=== PATIENT | male | born 1990 | race Caucasian/White ===

== ENCOUNTER → 2018-06-09 | Outpatient (CLI) | payer BC ==
[2018-06-09 12:47] LABS: BASO % 0.6 % (0.0-1.0); EOS # 0.1 10^3/uL (0.0-0.50); HEMATOCRIT 44.6 % (42.0-52.0); HEMOGLOBIN 15.1 g/dl (13.5-17.5); IMMATURE GRANULOCYTE % 0.4 % (0-3.0); LYMPH # 1.4 10^3/uL (1.5-6.5); LYMPH % 25.8 % (24.0-44.0); MEAN CORPUSCULAR HEMOGLOBIN 31.4 pg (27.0-33.0); MEAN CORPUSCULAR HGB CONC 33.9 g/dl (32.0-36.5); MEAN CORPUSCULAR VOLUME 92.7 fl (80.0-96.0); MONO # 0.9 10^3/uL (0.0-0.8); MONO % 17.7 % (0.0-5.0); NEUTROPHILS # 2.9 10^3/uL (1.8-7.7); NEUTROPHILS % 54.5 % (36.0-66.0); PLATELET COUNT, AUTOMATED 164 10^3/uL (150-450); RED BLOOD COUNT 4.81 10^6/uL (4.30-6.10); RED CELL DISTRIBUTION WIDTH 13.1 % (11.5-14.5); WHITE BLOOD COUNT 5.2 10^3/uL (4.0-10.0)
[2018-06-09 13:18] LABS: ALBUMIN 3.9 GM/DL (3.2-5.2); ALKALINE PHOSPHATASE 74 U/L (45-117); ALT/SGPT 27 U/L (12-78); ANION GAP 8 MEQ/L (8-16); AST/SGOT 54 U/L (7-37); BILIRUBIN,TOTAL 0.3 MG/DL (0.2-1.0); BLOOD UREA NITROGEN 7 MG/DL (7-18); CALCIUM LEVEL 8.7 MG/DL (8.5-10.1); CARBON DIOXIDE LEVEL 28 MEQ/L (21-32); CHLORIDE LEVEL 108 MEQ/L (98-107); CREATININE FOR GFR 0.72 MG/DL (0.70-1.30); GLOMERULAR FILTRATION RATE > 60.0 (>60); GLUCOSE, FASTING 100 MG/DL (70-100); POTASSIUM SERUM 4.2 MEQ/L (3.5-5.1); SODIUM LEVEL 144 MEQ/L (136-145); TOTAL PROTEIN 6.9 GM/DL (6.4-8.2)
[2018-06-11 00:07] LABS: Lyme Disease IgG/IgM Antibodie <0.91 ISR (0.00-0.90); Lyme Disease IgM Ab Quantitati <0.80 index (0.00-0.79)
== END ==
LOC: M WUC 09:03
DX: R53.83 Other fatigue (principal)
CPT/HCPCS: 80053

== ENCOUNTER 2021-05-07 17:47 | Observation (INO) | payer BC, MEDICAID ==
[~2021-05-07] VITALS: Ht 170.2 cm; Wt 48.0 kg
[~2021-05-07 17:47] MED LIST: BUDE150T OR; DEPA250T2 OR; DEPA250T3 OR; DEPA500T OR; DEPA500T2 OR; RISP0.5T20 OR; seroquel
[2021-05-07] MEDS ORDERED: diphenhydrAMINE 50MG/ML VIAL (J1200) As Ordered ONE (17:51)
[2021-05-07] MEDS ORDERED: HALOPERIDOL 5MG/ML VIAL (J1630 PER 1) As Ordered ONE (17:51)
[2021-05-07] MEDS ORDERED: LORazepam 2 MG/ML VIAL As Ordered ONE (17:52)
[2021-05-07] MEDS ORDERED: LORazepam 2 MG/ML VIAL IM ONE (18:05)
[2021-05-07] MEDS ORDERED: diphenhydrAMINE 50MG/ML VIAL (J1200) IM ONE (18:05)
[2021-05-07] MEDS ORDERED: HALOPERIDOL 5MG/ML VIAL (J1630 PER 1) IM ONE (18:05)
[2021-05-07] MEDS ORDERED: NS 1,000 ML IV ONE ×2 (18:05→20:30)
[2021-05-07] MEDS ORDERED: LORazepam 2 MG/ML VIAL IM STA (18:06)
[2021-05-07 18:15] LABS: VENOUS BASE EXCESS -7.4 (-2.0-2.0); VENOUS HCO3 16.7 MEQ/L (23.0-27.0); VENOUS PARTIAL PRESSURE CO2 30.5 mmHg (38.0-50.0); VENOUS PARTIAL PRESSURE O2 93.9 mmHg (30.0-50.0); VENOUS PH 7.355 UNITS (7.330-7.430); VENOUS STANDARD HCO3 18.6 MEQ/L; VENOUS TOTAL CO2 17.6 MEQ/L (24.0-28.0)
[2021-05-07 18:20] LABS: BASO # 0.1 10^3/uL (0.0-0.2); BASO % 0.6 % (0.0-1.0); EOS % 0.1 % (0.0-3.0); HEMATOCRIT 47.1 % (42.0-52.0); HEMOGLOBIN 15.6 g/dl (13.5-17.5); LYMPH # 1.7 10^3/uL (1.5-5.0); LYMPH % 12.1 % (24.0-44.0); MEAN CORPUSCULAR HEMOGLOBIN 31.1 pg (27.0-33.0); MEAN CORPUSCULAR HGB CONC 33.1 g/dl (32.0-36.5); MONO # 1.9 10^3/uL (0.0-0.8); MONO % 13.1 % (2.0-8.0); NEUTROPHILS # 10.5 10^3/uL (1.5-8.5); NEUTROPHILS % 73.7 % (36.0-66.0); PLATELET COUNT, AUTOMATED 212 10^3/uL (150-450); RED BLOOD COUNT 5.01 10^6/uL (4.30-6.10)
[2021-05-07 18:42] LABS: OSMOLALITY SERUM 300 MOSM/KG (275-295)
[2021-05-07 18:45] LABS: WHITE BLOOD COUNT 14.2 10^3/uL (4.0-10.0)
[2021-05-07 18:54] LABS: AMPHETAMINES LEVEL URINE NEGATIVE (NEGATIVE); BARBITURATES URINE NEGATIVE (NEGATIVE); BENZODIAZEPINES URINE NEGATIVE (NEGATIVE); CANNABINOIDS URINE POSITIVE (NEGATIVE); COCAINE METABOLITE URINE NEGATIVE (NEGATIVE); METHADONE URINE NEGATIVE (NEGATIVE); OPIATES URINE NEGATIVE (NEGATIVE); PHENCYCLIDINE URINE NEGATIVE (NEGATIVE)
[2021-05-07 19:01] LABS: ACETAMINOPHEN LEVEL < 2.0 UG/ML (10.0-30.0); ALBUMIN 4.6 GM/DL (3.2-5.2); ALT/SGPT 40 U/L (12-78); BILIRUBIN,DIRECT 0.2 MG/DL (0.0-0.2); BILIRUBIN,TOTAL 0.7 MG/DL (0.2-1.0); BLOOD UREA NITROGEN 11 MG/DL (7-18); CALCIUM LEVEL 9.2 MG/DL (8.5-10.1); CARBON DIOXIDE LEVEL 16 MEQ/L (21-32); CHLORIDE LEVEL 104 MEQ/L (98-107); CK-MB VALUE MASS 4.9 NG/ML (<3.6); CPK CREATINE PHOSPHOKINASE 1364 U/L (39-308); CREATININE FOR GFR 1.19 MG/DL (0.70-1.30); ETHYL ALCOHOL (ETHANOL) 0.029 % (0.000-0.010); GLOMERULAR FILTRATION RATE > 60.0 (>60); GLUCOSE, FASTING 129 MG/DL (70-100); MB/CK RELATIVE INDEX 0.36 (< OR =4); POTASSIUM SERUM 4.3 MEQ/L (3.5-5.1); SALICYLATE LEVEL 2.4 MG/DL (5.0-30.0); SODIUM LEVEL 139 MEQ/L (136-145); TOTAL PROTEIN 7.6 GM/DL (6.4-8.2); TROPONIN I < 0.02 NG/ML (< 0.10)
[2021-05-08] MEDS ORDERED: LORazepam 2 MG/ML VIAL IV STA (04:47)
[2021-05-08] MEDS ORDERED: ZIPRASIDONE 20MG CAPSULE (GEODON) PO ONE (04:50)
[2021-05-08] MEDS ORDERED: NICOTINE 21MG/24HR 1 EA TRANSDERMAL TD ONE (04:50)
[2021-05-08] MEDS ORDERED: NS 1,000 ML IV ONE (07:15)
[2021-05-08 08:35] LABS: BLOOD UREA NITROGEN 11 MG/DL (7-18); CALCIUM LEVEL 8.5 MG/DL (8.5-10.1); CARBON DIOXIDE LEVEL 24 MEQ/L (21-32); CHLORIDE LEVEL 109 MEQ/L (98-107); CK-MB VALUE MASS 8.3 NG/ML (<3.6); CPK CREATINE PHOSPHOKINASE 1319 U/L (39-308); CREATININE FOR GFR 0.55 MG/DL (0.70-1.30); GLOMERULAR FILTRATION RATE > 60.0 (>60); GLUCOSE, FASTING 67 MG/DL (70-100); MB/CK RELATIVE INDEX 0.63 (< OR =4); POTASSIUM SERUM 4.4 MEQ/L (3.5-5.1); SODIUM LEVEL 140 MEQ/L (136-145); TROPONIN I < 0.02 NG/ML (< 0.10)
[2021-05-08] MEDS: ENOXAPARIN 40MG/0.4ML SYRINGE (J1650 PER 10MG) SC SCH (09:00)
[2021-05-08] MEDS ORDERED: HOME MED LIST COMPLETE! XX SCH (09:05)
[2021-05-08] MEDS ORDERED: ACETAMINOPHEN TAB 650MG DOSE (2X325MG) PO PRN (09:15)
[2021-05-08] MEDS ORDERED: LORazepam 2 MG TAB PO PRN (09:55)
[2021-05-08 10:17] LABS: RSV AMPLIFICATION NEGATIVE (NEGATIVE)
--- NOTE | 2021-05-08 10:52 | HPEPDOC ---
[facility] Medical History & Physical Date of Admission May 08, 2021 Date of Service: May 08, 2021 Attending Physician: VERONICA BETANCOURT MD History and Physical CHIEF COMPLAINT: AMS i/s/o illicit substance, with admission to medicine for rhabdomyolysis HISTORY OF PRESENT ILLNESS: 30 yo M with a history of PSUD, alcohol use unclear if dependence, smoker, with a prior psychiatric illness history and prior admission to [facility] who was brought in by police in altered mentation after ingestion of an unknown illicit substance. He required multiple doses of IV ativan, benadryl and geordon in the ED to sedate him with a sitter currently present and continued to be confused and hyperactive but much improved from the time of presentation. ED evaluation showed WBC of 14.2, Hgb 15.6, platelets 212, Na 140, K 4.4, Cr initial of 1.19 that improved to 0.55 after 3L NC, CK of 1364 that improved to 1319 after the hydration, and lactate of 9 that normalized after hydration. CXR was wnl. He is now being admitted to medicine for observation and hydration i/s/o mild rhabdomyolysis, with ongoing symptom management for his metabolic, likely illicit mediated encephalopathy and empiric CIWA protocol for potential impending alcohol withdrawal. PAST MEDICAL HISTORY: per HPI PAST SURGICAL HISTORY: none SOCIAL HISTORY: Tobacco use: current smoker ETOH: current user, dependence unclear Illicit drug use: confirmed is marijuana, but suspect other substances as well FAMILY HISTORY: unable to corroborate and obtain history from patient at this time. ALLERGIES: Please see below. REVIEW OF SYSTEMS: Denies recent illness, fever, chills, tangential and unable to give a clear history. No noted fever, chills, rigors, complaints of chest pain, palpitations, abdominal pain, nausea, emesis, diarrhea in the ED. HOME MEDICATIONS: Please see below. PHYSICAL EXAMINATION: VITAL SIGNS: see below GENERAL APPEARANCE: NAD, slim built HEENT: NCAT, EOMI, MMM CARDIOVASCULAR: RRR, no m/r/g LUNGS: CTAB ABDOMEN: soft, normoactive sounds, NTND EXTREMITIES: WWP, no edema NEUROLOGICAL: CN3-12 appear intact, moving all extremities PSYCHIATRIC: hyperactive, tangential, oriented to self, remorseful, pressured speech, tangential and confused at times, labile, starts to cry. LABORATORY DATA and IMAGING: discussed above MICROBIOLOGY: Please see below. ASSESSMENT: 30 yo M with PSUD who was brought in by police with aggressive altered mentation with yumiko psychosis suspected 2/2 illicit substance use and also found to have marijuana on tox screen who is being admitted for hydration to medicine with mild rhabdomyolysis Rhabdomyolysis: -s/p 3L NS, will continue at 250cc/hr -daily BMP and CK check -renal function is at baseline Lactic acidosis: resolved with hydration -was likely 2/2/ dehydration -CXR wnl -UA was bland Yumiko psychosis with aggressive behavior i/s/o illicit substance intake -monitor with 1:1 sitter -PRN IV ativan for aggressive behavior -hydration -Per poison control, to avoid Benadryl and haldol -will admit to PCU for closer monitoring -consult psych when medically cleared Alcohol use: without clarity on degree of use and potential dependence -[facility] protocol -Multivitamin, thiamine, folate DVT ppx: lovenox, TEDs, SCDs Vital Signs Vital Signs Date Time Temp Pulse Resp B/P (MAP) Pulse Ox O2 Delivery O2 Flow Rate FiO2 05/08/21 06:15 70 16 99 Room Air 05/08/21 04:15 122/72 (89) 05/07/21 22:45 98.9 Laboratory Data Labs 24H Laboratory Tests 2 05/07/21 18:02: Immature Granulocyte % (Auto) 0.4, Neutrophils (%) (Auto) 73.7H, Lymphocytes (%) (Auto) 12.1L, Monocytes (%) (Auto) 13.1H, Eosinophils (%) (Auto) 0.1, Basophils (%) (Auto) 0.6, Neutrophils # (Auto) 10.5H, Lymphocytes # (Auto) 1.7, Monocytes # (Auto) 1.9H, Eosinophils # (Auto) 0.0, Basophils # (Auto) 0.1, Nucleated Red Blood Cells % (auto) 0.0, Lactic Acid Level 9.7*H, Urine Opiates Screen NEGATIVE, Urine Methadone Screen NEGATIVE, Urine Barbiturates Screen NEGATIVE, Urine Phencyclidine Screen NEGATIVE, Urine Amphetamines Screen NEGATIVE, Urine Benzodiazepines Screen NEGATIVE, Urine Cocaine Metabolite Screen NEGATIVE, Urine Cannabinoids Screen POSITIVEH 05/07/21 18:07: Urine Color YELLOW, Urine Appearance CLEAR, Urine pH 6.0, Urine Specific Ellsworth 1.011, Urine Protein NEGATIVE, Urine Glucose (UA) NEGATIVE, Urine Ketones NEGATIVE, Urine Blood NEGATIVE, Urine Nitrite NEGATIVE, Urine Bilirubin NEGATIVE, Urine Urobilinogen 0.2, Urine Leukocyte Esterase NEGATIVE, Urine WBC (Auto) 1, Urine RBC (Auto) 0, Urine Hyaline Casts (Auto) 2, Urine Bacteria (Auto) NEGATIVE, Urine Squamous Epithelial Cells 0, Urine Sperm (Auto) , Blood Gas Bicarbonate Standard 18.6, Venous Blood pH 7.355, Venous Blood Partial Pressure CO2 30.5L, Venous Blood Partial Pressure O2 93.9H, Venous Blood Total Carbon Dioxide 17.6L, Venous Blood HCO3 16.7L, Venous Blood Oxygen Saturation 97.0H, Venous Blood Base Excess -7.4L, Anion Gap 19H, Glomerular Filtration Rate > 60.0, Osmolality 300H, Calcium Level 9.2, Total Bilirubin 0.7, Direct Bilirubin 0.2, Aspartate Amino Transf (AST/SGOT) 71H, Alanine Aminotransferase (ALT/SGPT) 40, Alkaline Phosphatase 79, Total Creatine Kinase 1364H, Creatine Kinase MB 4.9H, Creatine Kinase MB Relative Index 0.36, Troponin I < 0.02, Total Protein 7.6, Albumin 4.6, Albumin/Globulin Ratio 1.5, Thyroid Stimulating Hormone (TSH) 1.300, Salicylates Level 2.4L, Acetaminophen Level < 2.0L, Ethyl Alcohol Level 0.029H 05/08/21 07:19: Anion Gap 7L, Glomerular Filtration Rate > 60.0, Calcium Level 8.5, Total Creatine Kinase 1319H, Creatine Kinase MB 8.3H, Creatine Kinase MB Relative Index 0.63, Troponin I < 0.02, Lactic Acid Followup at 4 Hours 0.6 05/08/21 09:05: CBC/BMP Laboratory Tests 05/07/21 18:02 05/07/21 18:07 05/08/21 07:19 Home Medications No Active Prescriptions or Reported Meds Allergies Coded Allergies: SEAFOOD (Verified Allergy, Intermediate, Swelling, 05/14/12) SEASONAL ALLERGIES (Verified Allergy, Mild, 05/14/12) No Known Drug Allergies (Verified Allergy, Unknown, 05/07/21) A-FIB/CHADSVASC A-FIB History Current/History of A-Fib/PAF?: No Current PO Anticoag Therapy: No Age/Risk Factor Scoring CHADSVASC: CHADSVASC Response (Comments) Value Age Risk Factor Age < 65 years old 0 Gender Risk Factor Male 0 Hx of CHF No 0 Hx of HTN No 0 Hx of Stroke/TIA/or VTE No 0 Hx of Diabetes No 0 Hx of Vascular Disease No 0 Total 0 Treatment Treatment ordered: NONE Reason Anticoagulant not given: Not indicated/[id number] VERONICA BETANCOURT MD May 08, 2021 09:55
[2021-05-08] MEDS: NS 1,000 ML IV SCH ×4 (13:44→20:58)
[2021-05-08 15:05] VITALS: BP 138/82
[2021-05-08 15:10] VITALS: BP 138/82
[2021-05-08] MEDS: FOLIC ACID 1 MG TAB PO SCH (15:12)
[2021-05-08] MEDS: MULTIVITAMINS/MINERALS THERAP 1 TAB PO SCH (15:12)
[2021-05-08] MEDS: THIAMINE 100 MG TAB PO SCH ×2 (15:12→20:57)
--- NOTE | 2021-05-08 15:18 | ECGEPIP ---
[facility] - ED Test Date: 2021-05-07 Pat Name: POONAM SOARES Department: Room: - Gender: Male Intensive Care Specialist: Richard BLANK : 1990 Requested By: BLAKE Orellana Order Number: [id number] Reading MD: Blake Smith Measurements Intervals Dorothy Rate: 107 P: 77 CT: 158 QRS: 84 QRSD: 88 T: 50 QT: 348 QTc: 464 Interpretive Statements Sinus tachycardia Possible biatrial enlargement Comparison tracing not on file Electronically Signed on 05-08-2021 15:17:47 EDT by Blake Smith
[2021-05-08] MEDS: LORazepam 2 MG/ML VIAL IV PRN (17:40)
[2021-05-08 20:00] VITALS: BP 125/63
[2021-05-08 22:00] VITALS: BP 121/62
[2021-05-09] VITALS (7 sets, daily range): BP systolic 124–129; BP diastolic 63–83
[2021-05-09] MEDS: NS 1,000 ML IV SCH ×2 (01:53→05:40)
[2021-05-09] MEDS: LORazepam 2 MG/ML VIAL IV PRN (05:39)
[2021-05-09 06:16] LABS: HEMATOCRIT 37.9 % (42.0-52.0); HEMOGLOBIN 12.6 g/dl (13.5-17.5); MEAN CORPUSCULAR HEMOGLOBIN 30.7 pg (27.0-33.0); MEAN CORPUSCULAR HGB CONC 33.2 g/dl (32.0-36.5); MEAN CORPUSCULAR VOLUME 92.4 fl (80.0-96.0); PLATELET COUNT, AUTOMATED 139 10^3/uL (150-450)
[2021-05-09 06:32] LABS: BLOOD UREA NITROGEN 6 MG/DL (7-18); CALCIUM LEVEL 7.9 MG/DL (8.5-10.1); CARBON DIOXIDE LEVEL 23 MEQ/L (21-32); CHLORIDE LEVEL 118 MEQ/L (98-107); CREATININE FOR GFR 0.54 MG/DL (0.70-1.30); GLOMERULAR FILTRATION RATE > 60.0 (>60); GLUCOSE, FASTING 95 MG/DL (70-100); POTASSIUM SERUM 3.9 MEQ/L (3.5-5.1); SODIUM LEVEL 146 MEQ/L (136-145)
[2021-05-09] MEDS: MULTIVITAMINS/MINERALS THERAP 1 TAB PO SCH (09:35)
[2021-05-09] MEDS: THIAMINE 100 MG TAB PO SCH (09:35)
[2021-05-09] MEDS: FOLIC ACID 1 MG TAB PO SCH (09:35)
[2021-05-09] MEDS: ENOXAPARIN 40MG/0.4ML SYRINGE (J1650 PER 10MG) SC SCH (09:36)
--- NOTE | 2021-05-09 15:24 | DS.PDOC ---
Discharge Summary General Date of Admission May 08, 2021 at 09:14 Date of Discharge 05/09/2021 Attending Physician: VERONICA BETANCOURT MD Discharge Summary PROCEDURES PERFORMED DURING STAY: None ADMITTING DIAGNOSES: Mild rhabdomyolysis Dehydration Elio psychosis likely 2/2 illicit stimulant use PSUD DISCHARGE DIAGNOSES: Mild rhabdomyolysis Dehydration Elio psychosis likely 2/2 illicit stimulant use PSUD History of mood disorder, with prior admission to [facility] COMPLICATIONS/CHIEF COMPLAINT: Psychosis, Rhabdomyolysis, Substance Abuse. HISTORY OF PRESENT ILLNESS: 30 yo M with a history of PSUD, alcohol use unclear if dependent, smoker, with a prior psychiatric illness history and prior admission to [facility] who was brought in by police in altered mentation after ingestion of an unknown illicit substance. HOSPITAL COURSE: He required multiple doses of IV ativan, benadryl and geordon in the ED to sedate him and continued to be confused and hyperactive but much improved from the time of presentation by the time I initially assessed him. ED evaluation showed WBC of 14.2, Hgb 15.6, platelets 212, Na 140, K 4.4, Cr initial of 1.19 that improved to 0.55 after 3L NC, CK of 1364 that improved to 1319 after the hydration, and lactate of 9 that normalized after hydration. CXR was wnl. He is now being admitted to medicine for observation and hydration i/s/o mild rha bdomyolysis, with ongoing symptom management for his metabolic, likely illicit mediated encephalopathy and empiric CIWA protocol for potential impending alcohol withdrawal. He was evaluated by psychiatry and deemed appropriate for home discharge and is now medically cleared and being discharged home with recommendation to follow up with PCP and establish care with outpatient psychiatry. DISCHARGE MEDICATIONS: Please see below. ALLERGIES: Please see below. PHYSICAL EXAMINATION ON DISCHARGE: VITAL SIGNS: Please see below. GENERAL APPEARANCE: NAD, slim built, multiple tattoos HEENT: NCAT, EOMI, MMM CARDIOVASCULAR: RRR, no m/r/g LUNGS: CTAB ABDOMEN: soft, normoactive sounds, NTND EXTREMITIES: WWP, no edema NEUROLOGICAL: CN3-12 appear intact, moving all extremities PSYCHIATRIC: Alert, awake, oriented, remorseful, labile, starts to cry. LABORATORY DATA: Please see below. IMAGING: None PROGNOSIS: Good, with abstinence from illicit drugs, and adherence to psychiatry recommendations ACTIVITY: As tolerated DIET: Regular DISCHARGE PLAN: home with close PCP and referral to [facility] outpatient psychiatry DISPOSITION: home DISCHARGE INSTRUCTIONS: Being discharged home ITEMS TO FOLLOWUP ON ON OUTPATIENT: PSUD DISCHARGE CONDITION: Stable TIME SPENT ON DISCHARGE: 40 minutes. Vital Signs/I&Os Vital Signs Date Time Temp Pulse Resp B/P (MAP) Pulse Ox O2 Delivery O2 Flow Rate FiO2 05/09/21 06:00 82 124/76 05/09/21 04:00 97.3 16 99 Room Air I&O- Last 24 Hours up to 6 AM 05/09/21 06:00 Intake Total 2760 ml Output Total 200 ml Balance 2560 ml Laboratory Data Labs 24H Laboratory Tests 2 05/08/21 09:05: Coronavirus (COVID-19)(PCR) NEGATIVE, Influenza Type A (RT-PCR) NEGATIVE, Influenza Type B (RT-PCR) NEGATIVE, Respiratory Syncytial Virus (PCR) NEGATIVE 05/09/21 05:41: Nucleated Red Blood Cells % (auto) 0.0, Anion Gap 5L, Glomerular Filtration Rate > 60.0, Calcium Level 7.9L, Total Creatine Kinase 1245H CBC/BMP Laboratory Tests 05/09/21 05:41 Discharge Medications No Active Prescriptions or Reported Meds Allergies Coded Allergies: SEAFOOD (Verified Allergy, Intermediate, Swelling, 05/14/12) SEASONAL ALLERGIES (Verified Allergy, Mild, 05/14/12) No Known Drug Allergies (Verified Allergy, Unknown, 05/07/21) VERONICA BETANCOURT MD May 09, 2021 08:45
[2021-05-09] MEDS ORDERED: NICOTINE 21MG/24HR 1 EA TRANSDERMAL TD ONE (16:40)
[2021-05-09] MEDS ORDERED: NICO21DI37 TOP (17:15)
--- NOTE | 2021-05-09 19:12 | MHCR ---
[facility] DATE: 05/09/2021 HISTORY OF PRESENT ILLNESS: I was asked to see this 30-year-old man with history of alcohol and drug use with prior psychiatric admission to the inpatient mental health unit with possible diagnosis of bipolar disorder. He was admitted when he was brought by the police with altered mental status and he was reported to be agitated and aggressive. He was admitted for dehydration and rhabdomyolysis. The patient, as I said, was admitted to the psychiatric unit. The last time that he was admitted was actually on 05/14/2012 and he did present pretty agitated, angry with his parents at the time, threatening his life. He was using opioids and cocaine at the time and some other drugs like ecstasy and methamphetamine. He was treated with Depakote 250 mg twice a day and he was diagnosed with bipolar disorder and a history of polysubstance abuse. He was actually discharged, aside from Depakote 500 mg twice a day and Seroquel 50 mg at bedtime. The patient today states that he is doing okay. He really minimizes whatever substances he has been using. He says that he did have a "relapse" and she says that he has been drinking and "using a little bit of weed." When I asked him if it was just some weed and some alcohol would he have been so agitated, aggressive and confused, he says that is because he had not been sleeping for two days before that. He states that he has been having trouble with his ex-, who keeps trying to prevent him from being able to see his 3-year-old son. But, he feels that he knows what he has to do and he recognizes he has to stop using any drugs or alcohol and he needs to use the support systems where he includes his father in that. He has not taken any medications for a while now and he really feels when he took medication before, it made him too drowsy. He did not like doing psychiatric treatment. He said he had conflict with the therapist that he saw, but he says that he is thinking of going to see Genny Waters, a primary care provider, whom he says has prescribed him some medications in the past. The patient says that the diagnosis of bipolar disorder was never really confirmed before and I am not really eliciting any history of manic or hypomanic-like symptoms, but he does have a history of having anxiety and depression. PAST PSYCHIATRIC HISTORY: As I said, he has had two psychiatric admissions, one in 2010 and one in 2012, both at [facility] inpatient medical health unit and the patient denies any suicidal attempts. FAMILY HISTORY: He denies any psychiatric illness in the family or suicides in the family. MEDICAL HISTORY: He denies any medical problems. MENTAL STATUS EXAMINATION: This patient is alert and oriented times three, pleasant and cooperative. He did have some mildly pressured speech. He did appear to be somewhat anxious and I suspect that that was the underlying problem. There was no formal thought disorder. He said that his mood is okay. His affect appears to be appropriate to his mood. He is not psychotic. He denied any suicidal or homicidal ideations. Concentration is fair. Memory is grossly intact. Insight and judgment are good, though I do think he is minimizing how much substance he is using. DIAGNOSES: 1. Unspecified depressive disorder. 2. Alcohol use disorder. 3. Cannabis use disorder. TREATMENT RECOMMENDATIONS: At this point, I feel that the patient can be discharged home from a psychiatric point of view. He never made any suicidal statements and he is not confused at this point. He is not suicidal or homicidal. He wants to go home. He is particularly concerned that he has no insurance. I highly recommended that he look at going to [facility] outpatient clinic for treatment or any other psychiatric clinic, since he was given a diagnosis of bipolar disorder in the past, but the patient says that he will consider that, but being that he has no insurance, he first wants to go and see his primary care provider, Genny Waters, to see if she will prescribe some medicine for him. The patient gave me permission to speak with his dad by the name of Leonel, phone number . The dad said that he had just gone to see him at the hospital this morning. He felt that the patient was doing okay, but he did say that he is concerned that he is going to continue with the same behavior, mainly the substance use and I did discuss with dad, however, that there really is no reason to transfer him to the psychiatric hospital and he is not committable and I did recommend that he pursue outpatient psychiatric treatment.
== END 2021-05-09 17:37 | disposition home or self-care (01) ==
LOC: M ED 17:47 → M ED INP 17:48 → UNDOADMOB 05-08 09:14 → M ED INP 05-08 09:14 → ENRESERV 05-08 14:18 → M ED INP 05-08 14:58 → M PCU 05-08 14:58 → UNDODISOB 05-09 17:37
PROVIDERS: ADMIT Internal Medicine; ATTEND Internal Medicine
DX: M62.82 Rhabdomyolysis (principal); E86.0 Dehydration; F15.959 Other stimulant use, unspecified with stimulant-induced psychotic disorder, unspecified; F19.10 Other psychoactive substance abuse, uncomplicated; F39 Unspecified mood [affective] disorder; F17.218 Nicotine dependence, cigarettes, with other nicotine-induced disorders; F10.10 Alcohol abuse, uncomplicated; E87.2 Acidosis; Z91.013 Allergy to seafood
CPT/HCPCS: 36415; 80048; 80076; 80143; 80307; 81001; 82077; 82550; 82553; 82803; 83605; 83930; 84443; 85025; 85027; 87631; 93005; 93041; 96361; 96372; 96374; 96376; 99285; J1200; J1630; J1650; J2060

== ENCOUNTER 2021-05-12 05:36 | Inpatient (IN) | payer BC ==
[~2021-05-12] VITALS: Ht 167.6 cm; Wt 44.2 kg
[~2021-05-12 05:36] MED LIST changes: +NICO21DI37 TOP
[2021-05-12] MEDS ORDERED: OLANZapine ORAL DISINTEGRATING TAB 5MG PO ONE (06:10)
[2021-05-12] MEDS ORDERED: LORazepam 2 MG TAB PO ONE (06:10)
[2021-05-12 06:44] LABS: HEMATOCRIT 45.7 % (42.0-52.0); HEMOGLOBIN 15.4 g/dl (13.5-17.5); MEAN CORPUSCULAR HEMOGLOBIN 31.1 pg (27.0-33.0); MEAN CORPUSCULAR HGB CONC 33.7 g/dl (32.0-36.5); MEAN CORPUSCULAR VOLUME 92.3 fl (80.0-96.0); PLATELET COUNT, AUTOMATED 206 10^3/uL (150-450); RED BLOOD COUNT 4.95 10^6/uL (4.30-6.10); WHITE BLOOD COUNT 9.7 10^3/uL (4.0-10.0)
[2021-05-12 07:10] LABS: ACETAMINOPHEN LEVEL < 2.0 UG/ML (10.0-30.0); ALBUMIN 4.1 GM/DL (3.2-5.2); ALT/SGPT 43 U/L (12-78); BILIRUBIN,DIRECT 0.1 MG/DL (0.0-0.2); BILIRUBIN,TOTAL 0.3 MG/DL (0.2-1.0); BLOOD UREA NITROGEN 13 MG/DL (7-18); CALCIUM LEVEL 9.1 MG/DL (8.5-10.1); CARBON DIOXIDE LEVEL 29 MEQ/L (21-32); CHLORIDE LEVEL 107 MEQ/L (98-107); CPK CREATINE PHOSPHOKINASE 550 U/L (39-308); CREATININE FOR GFR 0.81 MG/DL (0.70-1.30); ETHYL ALCOHOL (ETHANOL) < 0.003 % (0.000-0.010); GLOMERULAR FILTRATION RATE > 60.0 (>60); GLUCOSE, FASTING 89 MG/DL (70-100); POTASSIUM SERUM 4.8 MEQ/L (3.5-5.1); SALICYLATE LEVEL 2.3 MG/DL (5.0-30.0); SODIUM LEVEL 141 MEQ/L (136-145); TOTAL PROTEIN 7.6 GM/DL (6.4-8.2)
[2021-05-12 07:10] LABS: AMPHETAMINES LEVEL URINE NEGATIVE (NEGATIVE); BARBITURATES URINE NEGATIVE (NEGATIVE); BENZODIAZEPINES URINE POSITIVE (NEGATIVE); CANNABINOIDS URINE POSITIVE (NEGATIVE); COCAINE METABOLITE URINE NEGATIVE (NEGATIVE); METHADONE URINE NEGATIVE (NEGATIVE); OPIATES URINE NEGATIVE (NEGATIVE); PHENCYCLIDINE URINE NEGATIVE (NEGATIVE)
[2021-05-12] MEDS: NICOTINE 21MG/24HR 1 EA TRANSDERMAL TD SCH (09:00)
[2021-05-12] MEDS ORDERED: NICOTINE 21MG/24HR 1 EA TRANSDERMAL TD ONE (10:35)
[2021-05-12] MEDS ORDERED: NICO1DIS12 TD (11:37)
[2021-05-12 12:45] LABS: RSV AMPLIFICATION NEGATIVE (NEGATIVE)
[2021-05-12] MEDS ORDERED: MAALOX 30 ML SUSP *UDC PO PRN (12:50)
[2021-05-12] MEDS ORDERED: traZODone 50 MG TAB PO PRN (12:50)
[2021-05-12] MEDS: LORazepam 1 MG TAB PO PRN ×2 (16:15→22:02)
[2021-05-12 17:05] VITALS: BP 134/70
[2021-05-12] MEDS: ACETAMINOPHEN TAB 650MG DOSE (2X325MG) PO PRN (20:21)
[2021-05-13] MEDS: LORazepam 1 MG TAB PO PRN ×3 (06:53→19:19)
[2021-05-13] MEDS: ACETAMINOPHEN TAB 650MG DOSE (2X325MG) PO PRN ×2 (08:08→19:20)
[2021-05-13] MEDS: NICOTINE 21MG/24HR 1 EA TRANSDERMAL TD SCH (08:08)
--- NOTE | 2021-05-13 13:39 | HPEPDOC ---
[facility] Medical History & Physical Date of Admission May 12, 2021 Date of Service: May 13, 2021 Attending Physician: VERONICA BETANCOURT MD History and Physical CHIEF COMPLAINT: Suicidal ideation, pressured speech with disorganized thought HISTORY OF PRESENT ILLNESS: 30 yo M with a history of PSUD, alcohol use without evidence of dependence on recent admission, smoker, with unclear but certainly very active psychiatric illness history and prior admission to [facility] and recently admitted to medicine for mild rhabdomyolysis i/s/o recent illicit stimulant consumptions with hyperactive encephalopathy, who was brought in by police after he called them and expressed SI and was found in altered mentation. ED evaluation showed a CBC and BMP within normal limits, CK of 550 and tox screen that was positive for benzos and cannabinoids. On evaluation, he was noted to speak to self, was preoccupied, reported suicidality most recently with thoughts of crashing his car intentionally. Of note, psychiatry was consulted by medicine during his recent medical admission and was deemed safe for discharge home with plan for establishing mental health in the outpatient setting. He is now admitted to the [facility] for psychiatric evaluation and treatment and medicine is consulted for medical evaluation. He denies recent fever, chills, chest pain, palpitations, SOB or any physical pain at this time. He is otherwise angry and irritable, with pressured speech and asking for ativan as he is not being adequately treated and noone is allow ing him to do anything, and is upset the psychiatrist will only see him this afternoon and not right now etc. PAST MEDICAL HISTORY: per HPI PAST SURGICAL HISTORY: none SOCIAL HISTORY: Tobacco use: current smoker ETOH: current user, without dependence Illicit drug use: PSUD, has used various illicit drugs FAMILY HISTORY: unable to corroborate and obtain history from patient at this time. ALLERGIES: Please see below. REVIEW OF SYSTEMS: Tangential and unable to give a coherent singer back tender history. When asked to answer to specific questions, he denies noted fever, chest pain, palpitations, abdominal pain, nausea, emesis, diarrhea. HOME MEDICATIONS: Please see below. PHYSICAL EXAMINATION: VITAL SIGNS: see below GENERAL APPEARANCE: NAD, slim built HEENT: NCAT, EOMI, MMM CARDIOVASCULAR: RRR, no m/r/g LUNGS: CTAB ABDOMEN: soft, normoactive sounds, NTND EXTREMITIES: WWP, no edema NEUROLOGICAL: CN3-12 appear intact, moving all extremities PSYCHIATRIC: hyperactive, tangential, pressured speech, irritable, labile mood LABORATORY DATA and IMAGING: discussed above MICROBIOLOGY: Please see below. ASSESSMENT: 30 yo M with PSUD who was brought in by police reporting suicidal ideation with altered mentation with hyperactivity, distractibility, lability and pressured speech and admitted to the [facility], with medicine now consulted for medical evaluation that was grossly benign at this time. Altered mentation with hyperactivity, distractibility, lability, pressured speech and suicidality: -Plan per primary psych team Nicotine addiction: -21mg nicotine patch/24h DVT ppx: ambulatory. Low risk. He is otherwise medically stable and internal medicine will sign off at this time. Vital Signs Vital Signs Date Time Temp Pulse Resp B/P (MAP) Pulse Ox O2 Delivery O2 Flow Rate FiO2 05/12/21 17:05 97.5 101 18 134/70 (91) 99 05/12/21 12:24 Room Air Laboratory Data Labs 24H Laboratory Tests 2 05/12/21 11:47: Coronavirus (COVID-19)(PCR) NEGATIVE, Influenza Type A (RT-PCR) NEGATIVE, Influenza Type B (RT-PCR) NEGATIVE, Respiratory Syncytial Virus (PCR) NEGATIVE Home Medications Scheduled Nicotine (Nicotine Patch) 21 Mg Patch.td24, 1 PATCH TD DAILY Allergies Coded Allergies: SEAFOOD (Verified Allergy, Intermediate, Swelling, 05/14/12) SEASONAL ALLERGIES (Verified Allergy, Mild, 05/14/12) A-FIB/CHADSVASC A-FIB History Current/History of A-Fib/PAF?: No Current PO Anticoag Therapy: No Age/Risk Factor Scoring CHADSVASC: CHADSVASC Response (Comments) Value Age Risk Factor Age < 65 years old 0 Gender Risk Factor Male 0 Hx of CHF No 0 Hx of HTN No 0 Hx of Stroke/TIA/or VTE No 0 Hx of Diabetes No 0 Hx of Vascular Disease No 0 Total 0 Treatment Treatment ordered: NONE Reason Anticoagulant not given: Not indicated/[id number] VERONICA BETANCOURT MD May 13, 2021 10:18
[2021-05-13] MEDS: OLANZapine ORAL DISINTEGRATING TAB 5MG PO PRN (15:38)
[2021-05-13 16:21] VITALS: BP 122/74
[2021-05-13] MEDS ORDERED: QUEtiapine FUMARATE 50MG TAB PO SCH (21:00)
--- NOTE | 2021-05-13 21:13 | MHHPE ---
[facility] HISTORY AND PHYSICAL DATE OF ADMISSION: 05/12/2021 This is a video assessment. He is in the inpatient psychiatry unit. I am at home. He is seen in the presence of staff. CHIEF COMPLAINT: He feels angry. SUBJECTIVE: He is 31 years old, was admitted to the hospital after having been discharged from the medical/surgical floor a few days ago, had been admitted there with rhabdomyolysis, some question of psychosis, was seen by psychiatry, Dr. Guajardo, on consultation. Please refer to her summary of May 09, 2021 for details related to the recent few days when he had been admitted because of altered mental status, was agitated, aggressive, was found to be dehydrated and with rhabdomyolysis. Has a history of previous inpatient psychiatric hospitalizations on a couple of occasions, the last one was almost nine years ago. Also has a history of misusing various drugs including opioids, cocaine, ecstasy and methamphetamines. When seen by Dr. Guajardo four days ago, was not thought to require inpatient hospitalization and was advised to seek outpatient care. He suggests he was in the process of following up, but it is not very clear. Says police brought him in, does not agree to him having been brought in and also apparently he was given Ativan in hospital to help with anxieties, when he suggests that he uses drugs. He is concerned that his creativity may be tempered if he is on medicines. Says had a hard time with sleep and that he needs Seroquel, Lamictal and Wellbutrin. Says would want those and he had used Seroquel in the past, but unclear when. Later suggests had taken part of some pills that a friend had given him of Seroquel and found it to be useful. Says had used Wellbutrin in the past as well, but this had been several years, and he is somewhat vague on that. Says has heard that he may find Lamictal useful, but that he has never used it. Says wishes to go home and get back to creativity, does various things, and also his business. 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 It should be noted it is difficult following him at times, given his tangential and rapid speech. He says has a couple of friends who are supportive and is vague on whether he gets along with his father, who is in the area apparently. Has not been on many medicines for quite a while, unclear how long, but the indication is months, possibly years. Denies feeling suicidal, though per the emergency room (ER) report, had suggested that he was suicidal when he was brought in by the police. When in the ER, was noted to be talking to himself. Speech was quite unorganized. He was incoherent. Speech was pressured as well. The ER report also suggests the patient had gone through a divorce recently. He had recently tried killing himself by crashing his car and apparently, the police saved his life because they pulled him over. This is per the patient. Says he feels he has been manic for a little while and that he had called the facilities recently asking for appointments, including after discharge from here recently. PAST PSYCHIATRIC HISTORY: Has been hospitalized on at least a couple of occasions. The last one was in 2011 in April. He was diagnosed with bipolar disorder in the past, which seems to be exacerbated when he is using drugs, though he has had difficulties with moods independent of the drugs as well apparently, per the chart. MEDICAL HISTORY: No acute medical conditions, though was hospitalized recently, as stated previously, with dehydration and rhabdomyolysis, was seen by the hospitalist and they have seen him on admission here as well. SUBSTANCE ABUSE HISTORY: Please refer to previous summaries. Has a history of misuse of various drugs and toxicology was positive for benzodiazepines and cannabinoids. SOCIAL HISTORY: Details unclear, we need to refer to previous summaries. Says stays on his own. Has a close friend as well and says intends attending Narcotics Anonymous (NA) via online at the behest of his friends. Reports no close supports. MENTAL STATUS EXAMINATION: Fairly neat, cooperative but irritable, angry, with rapid speech, tangential in thought, directable with effort, but then tends to go off on a tangent in his speech again with some lability of affect including mood, tearful at times. Denies any suicidal thoughts or intents. No homicidal ideas or intents. Does not appear internally preoccupied. No overt delusions elicited at present, unclear if any underlying. No fluctuation of consciousness. He is alert, oriented to time, place and person. Intellect average, possibly above average. Judgment and insight are quite compromised. VITAL SIGNS: Blood pressure 122/74, pulse 98, temperature 98.3. LABORATORY DATA: Urine toxicology positive for benzodiazepines and cannabinoids. Chemistry shows creatinine kinase at 550 (39-308). Creatinine kinase five days ago was 1319, a lot higher. Complete blood count is within normal limits. ASSESSMENT: 1. Bipolar disorder, current episode manic, possibly with psychotic features. 2. Cannabis use disorder. 3. Possibly benzodiazepine use disorder. 4. Consider amphetamine use disorder, including synthetic drugs. It is possible the patient has substance induced kisha, though history does point towards mood fluctuations in the absence of drug use as well, but this may need to be clarified. Drug use may exacerbate or initiate manic episodes as well. PLAN: He is admitted to the inpatient psychiatry unit, placed on relevant precautions and we will look at obtaining collateral information. Meanwhile, we will start him on Seroquel 50 mg at night. Will discontinue the trazodone. He does not wish to take the trazodone. We will also put him on Zyprexa Zydis 5 mg every 4 hours as needed for agitation to help diminish the mood instability as well. We will keep him on Ativan, but with caution for now temporarily, to help with diminishing the mood fluctuation and diminishing the irritability as well. We will involve him in individual, milieu and group therapy. We will also look at obtaining collateral information. He has been seen by the hospitalist. He will be discharged with followup once he is stable. I would anticipate a 5-7 day stay and would suggest substance abuse treatment upon discharge in addition to seeing psychiatry. Further recommendations will be made depending on the clinical picture. The assessment took 35 minutes.
[2021-05-14] MEDS: OLANZapine ORAL DISINTEGRATING TAB 5MG PO PRN ×3 (00:05→15:41)
[2021-05-14] MEDS: LORazepam 1 MG TAB PO PRN ×2 (02:27→08:39)
[2021-05-14] MEDS: NICOTINE 21MG/24HR 1 EA TRANSDERMAL TD SCH (08:39)
[2021-05-14] MEDS: ACETAMINOPHEN TAB 650MG DOSE (2X325MG) PO PRN (08:41)
[2021-05-14] MEDS: LORazepam 0.5 MG TAB PO PRN ×2 (14:31→20:41)
[2021-05-14 16:23] VITALS: BP 132/79
[2021-05-14] MEDS ORDERED: QUEtiapine FUMARATE 25 MG TAB PO SCH (21:00)
[2021-05-15] MEDS: OLANZapine ORAL DISINTEGRATING TAB 5MG PO PRN ×3 (00:47→15:05)
[2021-05-15] MEDS ORDERED: haloperidoL 5 MG TAB PO ONE (01:20)
[2021-05-15] MEDS: LORazepam 0.5 MG TAB PO PRN (07:10)
[2021-05-15] MEDS: ACETAMINOPHEN TAB 650MG DOSE (2X325MG) PO PRN ×3 (07:12→21:15)
[2021-05-15] MEDS: LITHIUM CARBONATE 300 MG **CR** TAB PO SCH ×2 (08:44→20:31)
[2021-05-15] MEDS: QUEtiapine FUMARATE 50MG TAB PO SCH (08:44)
[2021-05-15] MEDS: NICOTINE 21MG/24HR 1 EA TRANSDERMAL TD SCH (08:45)
[2021-05-15] MEDS ORDERED: LORazepam 0.5 MG TAB PO ONE (10:00)
--- NOTE | 2021-05-15 10:13 | MHIPN ---
[facility] PROGRESS NOTE DATE: 05/14/2021 VITAL SIGNS: Blood pressure 122/74, pulse 98, temperature 98.3. It should be noted this is a video assessment, I am at home, he is at the inpatient psychiatry unit, he is seen in the presence of staff. CHIEF COMPLAINT: Feels better. SUBJECTIVE: Seen for followup. Indicates feels better, more rested, though noticed that his sleep was still broken, but was able to get back to sleep. Has felt less anxious, taking the medicines as needed, including Zydis Zyprexa, which he took earlier, and lorazepam. Says gets less angry overall. MENTAL STATUS EXAMINATION: He is neat, he is cooperative, no agitation at present, speech less rapid, he is coherent, less tangential, with a calmer affect. Denies any thoughts of harming himself or anyone else, currently no overt delusions, though these may be "under the surface." Judgment and insight remain compromised, though possibly somewhat improved. ASSESSMENT: Bipolar disorder, current episode manic, possibly with psychotic features. Cannabis use disorder. Possible benzodiazepine and amphetamine use disorder. Feels a bit more stable in terms of mood, and he slept better than he had recently. PLAN: The Seroquel is increased to 75 mg at night, it is quite possible this may need further increase in time. I would suggest that he continue with the Zydis Zyprexa 5 mg every 4 hours as needed for agitation, but the Ativan will be decreased to 0.5 mg every few hours, for the next 48 hours, as needed, as there can be concerns regarding combining the Zyprexa (olanzapine) and Ativan (lorazepam), though there is greater concerns using them intramuscular. Will encourage his participation in activities in the unit. We will look at obtaining collateral information. He will be seeing the assigned clinicians tomorrow, and further recommendations will be made. He requests his boots and watch, and we will proceed with that with unit policy.
--- NOTE | 2021-05-15 10:17 | MHIPNPDOC ---
[facility] Progress Note Progress Note DATE OF SERVICE: 05/15/21 Patient was admitted due to acutely manic-like episode. Patient is cooperating with the medicine but reported that he slept only 3 hours last night and is stil l feeling very agitated, thinking fast, and having her time slowing down. He states that whenever he is under stress he gets manic and feels great and sometimes feels like he is Hari Gene. He is denying any command hallucination. Denies any paranoid and is asking for some medicine to slow his mind about and is willing to cooperate. Speech is very pressured and fast and flighty but is relevant and fairly coherent. Denies any lethality issues. HISTORY: . VITAL SIGNS: See below. NEW TEST RESULTS: . CURRENT MEDICATIONS: See below. MENTAL STATUS EXAMINATION: Patient is a 30-year old male, who is pressured and agitated. Speech: Is very fast, overproductive and flighty. Language skills are Fair. Thought processes including: , Easily distractible and flighty. Thought content: , Marked grandiosity. Abstract reasoning, and computation: poor]. Description of associations: , Disorganized. Description of abnormal or psychotic thoughts: Psychomotor agitation and grandiose ideas. Judgment: poor. Insight: poor. Orientation: , Well oriented. Recent and remote memory: Fair. Attention span and concentration: poor. Language: . Fund of knowledge: . Mood: , Elevated very happy. Affect: Grossly manic. DIAGNOSES: 1. . Bipolar disorder type I, manic 2. . 3. . ASSESSMENT:[Remained very pressured, agitated with gross manic symptoms] MANAGEMENT PLAN: [Stabilized with the medications. Increase the Seroquel. Inc rease Ativan and start lithium]. TIME SPENT: [[place] minutes. Vital Signs Vital Signs Date Time Temp Pulse Resp B/P (MAP) Pulse Ox O2 Delivery O2 Flow Rate FiO2 05/14/21 16:23 98.4 99 18 132/79 (96) 98 Room Air Current Medications Current Medications Medications (Trade) Dose Ordered Sig/Debbie Route PRN Reason Start Time Stop Time Status Last Admin Dose Admin Acetaminophen (Tylenol Tab) 650 mg Q6HP PRN PO HEADACHE or MILD DISCOMFORT 05/12/21 12:50 05/15/21 07:12 Al Hydrox/Mg Hydrox/Simethicone (Mylanta) 30 ml Q4HP PRN PO HEARTBURN/INDIGESTION 05/12/21 12:50 Home Med (Med Rec Complete!) ASDIRECTED XX 05/12/21 11:40 05/12/21 11:41 DC [place] Carbonate (Lithobid Cr) 300 mg BID PO 05/15/21 09:00 05/15/21 08:44 Lorazepam (Ativan) 0.5 mg Q6HP PRN PO ANXIETY 05/14/21 12:15 05/15/21 08:23 DC 05/15/21 07:10 Lorazepam (Ativan) 1 mg Q6HP PRN PO ANXIETY/AGITATION 05/12/21 12:50 05/14/21 12:16 DC 05/14/21 08:39 Lorazepam (Ativan) 1 mg TID PO 05/15/21 16:00 Magnesium Hydroxide (Milk Of Magnesia) 30 ml DAILYPRN PRN PO CONSTIPATION 05/12/21 12:50 Nicotine (Nicoderm Cq 21mg) 1 patch DAILY TD 05/12/21 09:00 05/15/21 08:45 Olanzapine (ZyPREXA ZYDIS) 5 mg Q4HP PRN PO AGITATION 05/13/21 15:05 05/15/21 00:47 Quetiapine Fumarate (SEROquel) 50 mg QAM PO 05/15/21 09:00 05/15/21 08:44 Quetiapine Fumarate (SEROquel) 50 mg QHS PO 05/13/21 21:00 05/14/21 12:16 DC 05/13/21 21:29 Quetiapine Fumarate (SEROquel) 75 mg QHS PO 05/14/21 21:00 05/15/21 08:23 DC 05/14/21 20:41 Quetiapine Fumarate (SEROquel) 200 mg QHS PO 05/15/21 21:00 Trazodone HCl (Desyrel) 50 mg QHSP PRN PO INSOMNIA 05/12/21 12:50 05/13/21 15:08 DC 05/12/21 20:20 Allergies Coded Allergies: SEAFOOD (Verified Allergy, Intermediate, Swelling, 05/14/12) SEASONAL ALLERGIES (Verified Allergy, Mild, 05/14/12) XANDER GODDARD M.D. May 15, 2021 10:17
[2021-05-15] MEDS: LORazepam 1 MG TAB PO SCH ×2 (15:05→20:31)
[2021-05-15 17:20] VITALS: BP 140/79
[2021-05-15] MEDS: QUEtiapine FUMARATE 200 MG TAB PO SCH (20:31)
[2021-05-16 07:20] VITALS: BP 139/85
[2021-05-16] MEDS: OLANZapine ORAL DISINTEGRATING TAB 5MG PO PRN ×3 (07:28→16:32)
[2021-05-16] MEDS: LORazepam 1 MG TAB PO SCH ×3 (08:02→20:09)
[2021-05-16] MEDS: NICOTINE 21MG/24HR 1 EA TRANSDERMAL TD SCH (08:02)
[2021-05-16] MEDS: MOM 30ML SUSPENSION UDC PO PRN (08:02)
[2021-05-16] MEDS: LITHIUM CARBONATE 300 MG **CR** TAB PO SCH ×2 (08:02→20:09)
[2021-05-16] MEDS: QUEtiapine FUMARATE 50MG TAB PO SCH (08:02)
[2021-05-16] MEDS: ACETAMINOPHEN TAB 650MG DOSE (2X325MG) PO PRN (10:24)
--- NOTE | 2021-05-16 12:14 | MHIPNPDOC ---
[facility] Progress Note Progress Note DATE OF SERVICE: 05/16/21 The patient cooperated with medications and reports feeling much better today. He slept well last night and feels he can concentrate and focus and feels more c reativity. He is much less intense and not as pressured and better organized. He is tolerating both medicines without any side effect and is happy with the progress and is willing to cooperate. HISTORY: . VITAL SIGNS: See below. NEW TEST RESULTS: . CURRENT MEDICATIONS: See below. MENTAL STATUS EXAMINATION: Patient is a 30-year old male, who is , pleasant and cooperative. Speech: Is pressured, rapid, but relevant. Language skills are good. Thought processes including: Better organized. Thought content: Quite grandiose but not paranoid. Abstract reasoning, and computation: fair. Description of associations: Relevant. Description of abnormal or psychotic thoughts: Denies any command hallucination. Judgment: fair. Insight: fair. Orientation: , Well oriented. Recent and remote memory: Fair. Attention span and concentration: . Language: . Fund of knowledge: . Mood: , Elevated. Affect: Good range, appropriate, but they're living. DIAGNOSES: 1. . Bipolar disorder type I 2. . 3. . ASSESSMENT: Showing some improvement MANAGEMENT PLAN: Continued the current treatment. TIME SPENT: [20] minutes. Vital Signs Vital Signs Date Time Temp Pulse Resp B/P (MAP) Pulse Ox O2 Delivery O2 Flow Rate FiO2 05/16/21 07:20 98.9 109 20 139/85 (103) 99 Room Air Current Medications Current Medications Medications (Trade) Dose Ordered Sig/Debbie Route PRN Reason Start Time Stop Time Status Last Admin Dose Admin Acetaminophen (Tylenol Tab) 650 mg Q6HP PRN PO HEADACHE or MILD DISCOMFORT 05/12/21 12:50 05/16/21 10:24 Al Hydrox/Mg Hydrox/Simethicone (Mylanta) 30 ml Q4HP PRN PO HEARTBURN/INDIGESTION 05/12/21 12:50 Home Med (Med Rec Complete!) ASDIRECTED XX 05/12/21 11:40 05/12/21 11:41 DC [place] Carbonate (Lithobid Cr) 300 mg BID PO 05/15/21 09:00 05/16/21 08:02 Lorazepam (Ativan) 0.5 mg Q6HP PRN PO ANXIETY 05/14/21 12:15 05/15/21 08:23 DC 05/15/21 07:10 Lorazepam (Ativan) 1 mg Q6HP PRN PO ANXIETY/AGITATION 05/12/21 12:50 05/14/21 12:16 DC 05/14/21 08:39 Lorazepam (Ativan) 1 mg TID PO 05/15/21 16:00 05/16/21 08:02 Magnesium Hydroxide (Milk Of Magnesia) 30 ml DAILYPRN PRN PO CONSTIPATION 05/12/21 12:50 05/16/21 08:02 Nicotine (Nicoderm Cq 21mg) 1 patch DAILY TD 05/12/21 09:00 05/16/21 08:02 Olanzapine (ZyPREXA ZYDIS) 5 mg Q4HP PRN PO AGITATION 05/13/21 15:05 05/16/21 11:42 Quetiapine Fumarate (SEROquel) 50 mg QAM PO 05/15/21 09:00 05/16/21 08:02 Quetiapine Fumarate (SEROquel) 50 mg QHS PO 05/13/21 21:00 05/14/21 12:16 DC 05/13/21 21:29 Quetiapine Fumarate (SEROquel) 75 mg QHS PO 05/14/21 21:00 05/15/21 08:23 DC 05/14/21 20:41 Quetiapine Fumarate (SEROquel) 200 mg QHS PO 05/15/21 21:00 05/15/21 20:31 Trazodone HCl (Desyrel) 50 mg QHSP PRN PO INSOMNIA 05/12/21 12:50 05/13/21 15:08 DC 05/12/21 20:20 Allergies Coded Allergies: SEAFOOD (Verified Allergy, Intermediate, Swelling, 05/14/12) SEASONAL ALLERGIES (Verified Allergy, Mild, 05/14/12) XANDER GODDARD M.D. May 16, 2021 12:14
[2021-05-16 18:38] VITALS: BP 126/81
[2021-05-16] MEDS: QUEtiapine FUMARATE 200 MG TAB PO SCH (20:09)
[2021-05-17] MEDS: OLANZapine ORAL DISINTEGRATING TAB 5MG PO PRN ×3 (06:38→21:09)
[2021-05-17 06:39] VITALS: BP 131/76
[2021-05-17] MEDS: NICOTINE 21MG/24HR 1 EA TRANSDERMAL TD SCH (08:02)
[2021-05-17] MEDS: QUEtiapine FUMARATE 50MG TAB PO SCH (08:02)
[2021-05-17] MEDS: LITHIUM CARBONATE 300 MG **CR** TAB PO SCH ×2 (08:02→20:23)
[2021-05-17] MEDS: LORazepam 1 MG TAB PO SCH ×3 (08:02→20:23)
--- NOTE | 2021-05-17 09:11 | MHIPNPDOC ---
[facility] Progress Note Progress Note DATE OF SERVICE: 05/17/21 The patient reports again that he is feeling much better and slept well last night. She has been using Zyprexa in the morning and was suggested to change it as a scheduled medicine, but patient doesn't want that change. He is much more organized and not as flighty, but his speech is still very pressured, rapid and productive. His mood is still elevated, although he feels that he is at his baseline. He has no complaint of side effect and denies any other manic symptoms and is happy with his current medication. I would get lithium blood level and CMP tomorrow morning to evaluate. HISTORY: . VITAL SIGNS: See below. NEW TEST RESULTS: . CURRENT MEDICATIONS: See below. MENTAL STATUS EXAMINATION: Patient is a 30-year old male, who is , pleasant and cooperative. Speech: Is rapid, pressured. Language skills are good. Thought processes including: At times flighty. Thought content: No gross delusions. Abstract reasoning, and computation: fair. Description of associations: Organized. Description of abnormal or psychotic thoughts: Does not appear to be delusional or hallucinating. Judgment: fair. Insight: fair. Orientation: , Oriented. Recent and remote memory: poor. Attention span and concentration: . Language: . Fund of knowledge: . Mood: Moderately elevated. Affect: , Not labile, and appropriate. DIAGNOSES: 1. ]. Bipolar disorder, manic 2. . 3. . ASSESSMENT:[Showing moderate improvement was still elevated] MANAGEMENT PLAN: [Evaluated with the blood work and continue the supportive therapy]. TIME SPENT: 20 minutes. Vital Signs Vital Signs Date Time Temp Pulse Resp B/P (MAP) Pulse Ox O2 Delivery O2 Flow Rate FiO2 05/17/21 06:39 97.7 96 16 131/76 (94) 100 Room Air Current Medications Current Medications Medications (Trade) Dose Ordered Sig/Debbie Route PRN Reason Start Time Stop Time Status Last Admin Dose Admin Acetaminophen (Tylenol Tab) 650 mg Q6HP PRN PO HEADACHE or MILD DISCOMFORT 05/12/21 12:50 05/16/21 10:24 Al Hydrox/Mg Hydrox/Simethicone (Mylanta) 30 ml Q4HP PRN PO HEARTBURN/INDIGESTION 05/12/21 12:50 Home Med (Med Rec Complete!) ASDIRECTED XX 05/12/21 11:40 05/12/21 11:41 DC [place] Carbonate (Lithobid Cr) 300 mg BID PO 05/15/21 09:00 05/17/21 08:02 Lorazepam (Ativan) 0.5 mg Q6HP PRN PO ANXIETY 05/14/21 12:15 05/15/21 08:23 DC 05/15/21 07:10 Lorazepam (Ativan) 1 mg Q6HP PRN PO ANXIETY/AGITATION 05/12/21 12:50 05/14/21 12:16 DC 05/14/21 08:39 Lorazepam (Ativan) 1 mg TID PO 05/15/21 16:00 05/17/21 08:02 Magnesium Hydroxide (Milk Of Magnesia) 30 ml DAILYPRN PRN PO CONSTIPATION 05/12/21 12:50 05/16/21 08:02 Nicotine (Nicoderm Cq 21mg) 1 patch DAILY TD 05/12/21 09:00 05/17/21 08:02 Olanzapine (ZyPREXA ZYDIS) 5 mg Q4HP PRN PO AGITATION 05/13/21 15:05 05/17/21 06:38 Quetiapine Fumarate (SEROquel) 50 mg QAM PO 05/15/21 09:00 05/17/21 08:02 Quetiapine Fumarate (SEROquel) 50 mg QHS PO 05/13/21 21:00 05/14/21 12:16 DC 05/13/21 21:29 Quetiapine Fumarate (SEROquel) 75 mg QHS PO 05/14/21 21:00 05/15/21 08:23 DC 05/14/21 20:41 Quetiapine Fumarate (SEROquel) 200 mg QHS PO 05/15/21 21:00 05/16/21 20:09 Trazodone HCl (Desyrel) 50 mg QHSP PRN PO INSOMNIA 05/12/21 12:50 05/13/21 15:08 DC 05/12/21 20:20 Allergies Coded Allergies: SEAFOOD (Verified Allergy, Intermediate, Swelling, 05/14/12) SEASONAL ALLERGIES (Verified Allergy, Mild, 05/14/12) XANDER GODDARD M.D. May 17, 2021 09:11
[2021-05-17] MEDS: ACETAMINOPHEN TAB 650MG DOSE (2X325MG) PO PRN (14:23)
[2021-05-17] MEDS: MOM 30ML SUSPENSION UDC PO PRN (14:23)
[2021-05-17 18:32] VITALS: BP 137/76
[2021-05-17] MEDS: QUEtiapine FUMARATE 200 MG TAB PO SCH (20:24)
[2021-05-18 06:03] VITALS: BP 112/78
[2021-05-18] MEDS: OLANZapine ORAL DISINTEGRATING TAB 5MG PO PRN ×3 (07:05→19:43)
[2021-05-18] MEDS: LITHIUM CARBONATE 300 MG **CR** TAB PO SCH ×2 (08:03→20:56)
[2021-05-18] MEDS: LORazepam 1 MG TAB PO SCH (08:03)
[2021-05-18] MEDS: NICOTINE 21MG/24HR 1 EA TRANSDERMAL TD SCH (08:03)
[2021-05-18] MEDS: QUEtiapine FUMARATE 50MG TAB PO SCH (08:04)
[2021-05-18 08:45] LABS: ALBUMIN 3.9 GM/DL (3.2-5.2); ALT/SGPT 40 U/L (12-78); BILIRUBIN,TOTAL 0.3 MG/DL (0.2-1.0); BLOOD UREA NITROGEN 12 MG/DL (7-18); CALCIUM LEVEL 9.2 MG/DL (8.5-10.1); CARBON DIOXIDE LEVEL 27 MEQ/L (21-32); CHLORIDE LEVEL 109 MEQ/L (98-107); CREATININE FOR GFR 0.68 MG/DL (0.70-1.30); GLOMERULAR FILTRATION RATE > 60.0 (>60); GLUCOSE, FASTING 93 MG/DL (70-100); LITHIUM LEVEL 0.63 MEQ/L (0.60-1.20); POTASSIUM SERUM 4.4 MEQ/L (3.5-5.1); SODIUM LEVEL 141 MEQ/L (136-145); TOTAL PROTEIN 7.2 GM/DL (6.4-8.2)
--- NOTE | 2021-05-18 08:56 | MHIPNPDOC ---
[facility] Progress Note Progress Note DATE OF SERVICE: 05/18/21 The patient is showing more improvement with the current treatment. His speech is much less pressured and his affect is not as intense and is much more appropriate. He states that his sleep quality has improved and he is able to focus much better and concentration is improved and is not feeling as high and is more at ease. He is not reporting any grandiose thinking, but still feels that he is the more creative than other people. It is more pleasant, appropriate, and his willing to continue his medications after discharge. His lithium level is 0.63 and his liver enzymes and kidney function is all within normal limits. He has been using frequent doses of Zyprexa and may need to continue after his discharge. Will decrease his Ativan and discontinuing at the time of discharge. HISTORY: . VITAL SIGNS: See below. NEW TEST RESULTS: . CURRENT MEDICATIONS: See below. MENTAL STATUS EXAMINATION: Patient is a 30-year old male, who is pleasant and cooperative . Speech: Is rational, coherent. Language skills are good. Thought processes including: , Not pressured or flight. . Thought content: More delusional thinking. Abstract reasoning, and computation: fair. Description of associations: Well organized . Description of abnormal or psychotic thoughts: None reported . Judgment: fair. Insight: good,]. Orientation: , Well-oriented. Recent and remote memory: On him.. Attention span and concentration: . Language: . Fund of knowledge: . Mood: Slightly elevated. Affect: , Appropriate. DIAGNOSES: 1. . Bipolar disorder type I, manic 2. . 3. . ASSESSMENT:Showing marked improvement MANAGEMENT PLAN: . Continue with the current medicines. Supportive therapy. Possible discharge tomorrow. TIME SPENT: 20 minutes. Vital Signs Vital Signs Date Time Temp Pulse Resp B/P (MAP) Pulse Ox O2 Delivery O2 Flow Rate FiO2 05/18/21 06:03 97.4 79 16 112/78 (89) 99 Room Air Laboratory Data 24H Labs Laboratory Tests 2 05/18/21 06:52: Anion Gap 5L, Glomerular Filtration Rate > 60.0, Calcium Level 9.2, Total Bilirubin 0.3, Aspartate Amino Transf (AST/SGOT) 29, Alanine Aminotransferase (ALT/SGPT) 40, Alkaline Phosphatase 85, Total Protein 7.2, Albumin 3.9, Albumin/Globulin Ratio 1.2, [place] Level 0.63 CBC/BMP Laboratory Tests 05/18/21 06:52 Current Medications Current Medications Medications (Trade) Dose Ordered Sig/Debbie Route PRN Reason Start Time Stop Time Status Last Admin Dose Admin Acetaminophen (Tylenol Tab) 650 mg Q6HP PRN PO HEADACHE or MILD DISCOMFORT 05/12/21 12:50 05/17/21 14:23 Al Hydrox/Mg Hydrox/Simethicone (Mylanta) 30 ml Q4HP PRN PO HEARTBURN/INDIGESTION 05/12/21 12:50 Home Med (Med Rec Complete!) ASDIRECTED XX 05/12/21 11:40 05/12/21 11:41 DC [place] Carbonate (Lithobid Cr) 300 mg BID PO 05/15/21 09:00 05/18/21 08:03 Lorazepam (Ativan) 0.5 mg Q6HP PRN PO ANXIETY 05/14/21 12:15 05/15/21 08:23 DC 05/15/21 07:10 Lorazepam (Ativan) 1 mg Q6HP PRN PO ANXIETY/AGITATION 05/12/21 12:50 05/14/21 12:16 DC 05/14/21 08:39 Lorazepam (Ativan) 1 mg TID PO 05/15/21 16:00 05/18/21 08:03 Magnesium Hydroxide (Milk Of Magnesia) 30 ml DAILYPRN PRN PO CONSTIPATION 05/12/21 12:50 05/17/21 14:23 Nicotine (Nicoderm Cq 21mg) 1 patch DAILY TD 05/12/21 09:00 05/18/21 08:03 Olanzapine (ZyPREXA ZYDIS) 5 mg Q4HP PRN PO AGITATION 05/13/21 15:05 05/18/21 07:05 Quetiapine Fumarate (SEROquel) 50 mg QAM PO 05/15/21 09:00 05/18/21 08:04 Quetiapine Fumarate (SEROquel) 50 mg QHS PO 05/13/21 21:00 05/14/21 12:16 DC 05/13/21 21:29 Quetiapine Fumarate (SEROquel) 75 mg QHS PO 05/14/21 21:00 05/15/21 08:23 DC 05/14/21 20:41 Quetiapine Fumarate (SEROquel) 200 mg QHS PO 05/15/21 21:00 05/17/21 20:24 Trazodone HCl (Desyrel) 50 mg QHSP PRN PO INSOMNIA 05/12/21 12:50 05/13/21 15:08 DC 05/12/21 20:20 Allergies Coded Allergies: SEAFOOD (Verified Allergy, Intermediate, Swelling, 05/14/12) SEASONAL ALLERGIES (Verified Allergy, Mild, 05/14/12) XANDER GODDARD M.D. May 18, 2021 08:56
[2021-05-18] MEDS: MOM 30ML SUSPENSION UDC PO PRN (09:12)
[2021-05-18] MEDS: ACETAMINOPHEN TAB 650MG DOSE (2X325MG) PO PRN (09:12)
[2021-05-18] MEDS: LORazepam 0.5 MG TAB PO SCH ×2 (16:00→20:56)
[2021-05-18 17:32] VITALS: BP 100/81
[2021-05-18] MEDS: QUEtiapine FUMARATE 200 MG TAB PO SCH (20:56)
[2021-05-19] MEDS: ACETAMINOPHEN TAB 650MG DOSE (2X325MG) PO PRN (05:52)
[2021-05-19 06:21] VITALS: BP 110/82
[2021-05-19] MEDS: OLANZapine ORAL DISINTEGRATING TAB 5MG PO PRN (07:28)
[2021-05-19] MEDS: LORazepam 0.5 MG TAB PO SCH (08:24)
[2021-05-19] MEDS: LITHIUM CARBONATE 300 MG **CR** TAB PO SCH (08:24)
[2021-05-19] MEDS: NICOTINE 21MG/24HR 1 EA TRANSDERMAL TD SCH (08:24)
[2021-05-19] MEDS ORDERED: LITH1TAB PO (08:53)
[2021-05-19] MEDS ORDERED: QUET200T2 PO (08:53)
[2021-05-19] MEDS ORDERED: OLAN5ZYD PO (08:53)
--- NOTE | 2021-05-19 10:59 | MHDSPDOC ---
[facility] Discharge Summary Discharge Summary DATE OF ADMISSION: May 12, 2021 at 12:49 DATE OF DISCHARGE: May 19, 2021 at 10:37 DISCHARGE DIAGNOSES: 1. . Bipolar disorder, manic 2. . REASON FOR ADMISSION: 30-year-old man with past psychiatric history was admitted due to psychomotor agitation, pressured and flighty speech and not sleeping with a marked grandiose ideas. Patient had several prior manic episode, but not been in any consistent treatment and came to emergency room seeking help.. He denied any gross psychotic symptoms and denied any suicidal thoughts but reports severely agitated mood and not being able to sleep and not feeling safe. CONSULTANTS INVOLVED: , None TREATMENT AND PROGRESS ON THE UNIT : Patient was started on lithium CR 300 mg twice a day and Seroquel 50 mg in the morning and 200 mg at bedtime and patient also used Zyprexa 5 mg as needed basis, averaging 2-3 tablets a day. He was also given Ativan 1 mg 3 times a day to control his agitation. Patient does fully cooperated with medications achieved lithium level 0.63 and his CMP was ordered within normal limits. Patient showed rapid improvement with improved sleep and feeling much less agitated or anxious and reports stable mood and feeling safe.. HOSPITAL COURSE: Patient was seen for daily supportive therapy and responded very well to the combination of lithium and Seroquel. His Ativan was decreased and then discontinued prior to discharge, and patient is asking to continue his Zyprexa as needed basis for the next 4 weeks until he feels fully stay. He is sleeping good. He is not feeling agitated anymore and denies any grandiose delusional thinking. He is pleasant and appropriate, maintaining good control and showing much improved behavior and insight. He is willing to accept outpatient follow-up treatment. DISCHARGE ASSESSMENT: Much improved and stable MENTAL STATUS EXAMINATION ON DISCHARGE: Patient is a 30-year old male, who is in good control. Speech is rational, coherent. Still pressured. Language skills are good. Thought processes including: Rational, relevant. Thought content: No delusional thinking . Abstract reasoning, and computation: Fair. Description of associations: , Organized. Description of abnormal or psychotic thoughts: None. Judgment: fair. Insight: good. Orientation to , well oriented. Recent and remote memory: Unimpaired. Attention span and concentration: Good. Language: . Fund of knowledge: . Mood: Euthymic. Affect appropriate. MEDICATIONS ON DISCHARGE: - for ., Seroquel 200 mg at bedtime for 7 days with 3 refills - for ., [place] CR 300 mg twice a day for 7 days with 3 refills - for ., Zyprexa 5 mg 3 times a day as needed. 7 days for 3 refills PLAN/FOLLOWUP ARRANGEMENTS: Arranged by the surgery tech . The amount of time spent in the coordination of care for this patient was approximately 35 minutes. ETOH/Disorder Med Rx ETOH/DRUG DISORDER RX: N/A Vital Signs/I&Os Vital Signs Date Time Temp Pulse Resp B/P (MAP) Pulse Ox O2 Delivery O2 Flow Rate FiO2 05/19/21 06:21 97.8 96 18 110/82 (91) 99 Room Air Medications Scheduled [place] Carbonate ([place] Carbonate ER) 300 Mg Tablet.er, 300 MG PO BID for mood for 7 Days, #14 Nicotine (Nicotine Patch) 21 Mg Patch.td24, 1 PATCH TD DAILY, (Reported) Quetiapine Fumarate (Quetiapine Fumarate) 200 Mg Tablet, 200 MG PO QHS for mood for 7 Days, #7 Scheduled PRN Olanzapine (Olanzapine Odt) 5 Mg Tab.rapdis, 5 MG PO Q4HP PRN for AGITATION for 7 Days, #21 Allergies Coded Allergies: SEAFOOD (Verified Allergy, Intermediate, Swelling, 05/14/12) SEASONAL ALLERGIES (Verified Allergy, Mild, 05/14/12) XANDER GODDARD M.D. May 19, 2021 10:59
== END 2021-05-19 10:37 | disposition home or self-care (01) | DRG 753 ==
LOC: M ED 05:36 → M ED INP 12:49 → M PSY 13:43
PROVIDERS: ADMIT Psychiatry & Neurology Psychiatry; ATTEND Psychiatry & Neurology Psychiatry
DX: F31.2 Bipolar disorder, current episode manic severe with psychotic features (principal); R45.851 Suicidal ideations; Z91.013 Allergy to seafood

== ENCOUNTER 2021-08-13 10:22 | Emergency (ER) | payer BC, MEDICAID, OTHER ==
[~2021-08-13] VITALS: Ht 170.2 cm; Wt 53.7 kg
[~2021-08-13 10:22] MED LIST changes: +LITH1TAB PO; +NICO1DIS12 TD; +OLAN5ZYD PO; +QUET200T2 PO
[2021-08-13 11:43] LABS: BASO % 0.3 % (0.0-1.0); EOS # 0.1 10^3/uL (0.0-0.5); EOS % 0.4 % (0.0-3.0); HEMATOCRIT 49.3 % (42.0-52.0); LYMPH # 1.9 10^3/uL (1.5-5.0); LYMPH % 14.8 % (24.0-44.0); MEAN CORPUSCULAR HEMOGLOBIN 31.5 pg (27.0-33.0); MEAN CORPUSCULAR HGB CONC 34.5 g/dl (32.0-36.5); MEAN CORPUSCULAR VOLUME 91.3 fl (80.0-96.0); MONO # 1.3 10^3/uL (0.0-0.8); MONO % 10.2 % (2.0-8.0); NEUTROPHILS # 9.5 10^3/uL (1.5-8.5); NEUTROPHILS % 73.8 % (36.0-66.0); PLATELET COUNT, AUTOMATED 190 10^3/uL (150-450); WHITE BLOOD COUNT 12.8 10^3/uL (4.0-10.0)
[2021-08-13 12:21] LABS: ALBUMIN 4.3 GM/DL (3.2-5.2); ALT/SGPT 19 U/L (12-78); BILIRUBIN,DIRECT 0.1 MG/DL (0.0-0.2); BILIRUBIN,TOTAL 0.5 MG/DL (0.2-1.0); BLOOD UREA NITROGEN 13 MG/DL (7-18); CALCIUM LEVEL 9.3 MG/DL (8.5-10.1); CARBON DIOXIDE LEVEL 23 MEQ/L (21-32); CHLORIDE LEVEL 109 MEQ/L (98-107); CREATININE FOR GFR 0.64 MG/DL (0.70-1.30); GLOMERULAR FILTRATION RATE > 60.0 (>60); GLUCOSE, FASTING 83 MG/DL (70-100); LITHIUM LEVEL < 0.20 MEQ/L (0.60-1.20); POTASSIUM SERUM 4.2 MEQ/L (3.5-5.1); SODIUM LEVEL 139 MEQ/L (136-145); TOTAL PROTEIN 7.9 GM/DL (6.4-8.2)
[2021-08-13] MEDS ORDERED: OLANZapine 5 MG TAB PO ONE (13:05)
[2021-08-13] MEDS ORDERED: LITHIUM CARBONATE 300 MG CAP PO ONE (13:05)
[2021-08-13 13:10] VITALS: BP 132/88
[2021-08-13] MEDS ORDERED: SERO50TA4 PO (13:13)
[2021-08-13] MEDS ORDERED: ZYPR5TAB2 PO (13:13)
[2021-08-13] MEDS ORDERED: LITH300C PO (13:13)
== END 2021-08-13 13:23 | disposition home or self-care (01) ==
LOC: M ED 10:22
DX: Z76.0 Encounter for issue of repeat prescription (principal); R45.1 Restlessness and agitation; Z72.821 Inadequate sleep hygiene; F31.9 Bipolar disorder, unspecified; J30.2 Other seasonal allergic rhinitis; Z79.899 Other long term (current) drug therapy; Z91.013 Allergy to seafood

== ENCOUNTER 2021-08-21 14:25 | Emergency (ER) | payer OTHER ==
[~2021-08-21] VITALS: Ht 170.2 cm; Wt 53.7 kg
[~2021-08-21 14:25] MED LIST changes: +LITH300C PO; +SERO50TA4 PO; +ZYPR5TAB2 PO
[2021-08-21 14:26] VITALS: BP 130/78
[2021-08-21] MEDS ORDERED: SERO1TAB PO (16:50)
== END 2021-08-21 17:06 | disposition home or self-care (01) ==
LOC: M ED 14:25
DX: F31.9 Bipolar disorder, unspecified (principal); J30.2 Other seasonal allergic rhinitis; Z79.899 Other long term (current) drug therapy; Z91.013 Allergy to seafood

== ENCOUNTER → 2021-08-25 | Outpatient (CLI) | payer OTHER ==
[~2021-08-25] MED LIST changes: +SERO1TAB PO
[2021-08-25 09:44] LABS: BASO % 0.4 % (0.0-1.0); EOS # 0.2 10^3/uL (0.0-0.5); EOS % 2.2 % (0.0-3.0); HEMATOCRIT 45.2 % (42.0-52.0); HEMOGLOBIN 15.1 g/dl (13.5-17.5); LYMPH # 1.8 10^3/uL (1.5-5.0); MEAN CORPUSCULAR HEMOGLOBIN 31.5 pg (27.0-33.0); MEAN CORPUSCULAR HGB CONC 33.4 g/dl (32.0-36.5); MEAN CORPUSCULAR VOLUME 94.4 fl (80.0-96.0); MONO # 0.9 10^3/uL (0.0-0.8); MONO % 9.3 % (2.0-8.0); NEUTROPHILS # 6.2 10^3/uL (1.5-8.5); NEUTROPHILS % 67.7 % (36.0-66.0); PLATELET COUNT, AUTOMATED 176 10^3/uL (150-450); RED BLOOD COUNT 4.79 10^6/uL (4.30-6.10); WHITE BLOOD COUNT 9.2 10^3/uL (4.0-10.0)
[2021-08-25 12:25] LABS: ALBUMIN 3.8 GM/DL (3.2-5.2); ALT/SGPT 20 U/L (12-78); BILIRUBIN,TOTAL 0.2 MG/DL (0.2-1.0); BLOOD UREA NITROGEN 13 MG/DL (7-18); CALCIUM LEVEL 8.9 MG/DL (8.5-10.1); CARBON DIOXIDE LEVEL 25 MEQ/L (21-32); CHOLESTEROL LEVEL 124 MG/DL (<200); CHOLESTEROL RISK RATIO 3.024 (<5); CREATININE FOR GFR 0.76 MG/DL (0.70-1.30); GLOMERULAR FILTRATION RATE > 60.0 (>60); GLUCOSE, FASTING 88 MG/DL (70-100); HDL CHOLESTEROL 41 MG/DL (>40); LDL CHOLESTEROL 70 MG/DL (<100); NON-HDL-C 83 MG/DL; TOTAL PROTEIN 6.9 GM/DL (6.4-8.2); TRIGLYCERIDES LEVEL 63 MG/DL (<150)
[2021-08-25 12:38] LABS: CHLORIDE LEVEL 112 MEQ/L (98-107); FOLATE 13.4 NG/ML (>5.4); POTASSIUM SERUM 4.5 MEQ/L (3.5-5.1); SODIUM LEVEL 142 MEQ/L (136-145); VITAMIN B12 LEVEL 458 PG/ML (247-911)
[2021-08-25 18:26] LABS: HEMOGLOBIN A1c 5.2 %
== END ==
LOC: M LAB 08:20
PROVIDERS: ATTEND Psychiatry & Neurology Psychiatry
DX: F31.60 Bipolar disorder, current episode mixed, unspecified (principal); F10.20 Alcohol dependence, uncomplicated

== ENCOUNTER → 2022-02-28 | Outpatient (CLI) | payer OTHER ==
[2022-02-28 09:40] LABS: BASO # 0.1 10^3/uL (0.0-0.2); BASO % 0.6 % (0.0-1.0); EOS # 0.2 10^3/uL (0.0-0.5); EOS % 2.4 % (0.0-3.0); HEMATOCRIT 43.7 % (42.0-52.0); HEMOGLOBIN 14.6 g/dl (13.5-17.5); LYMPH # 2.1 10^3/uL (1.5-5.0); LYMPH % 23.6 % (24.0-44.0); MEAN CORPUSCULAR HEMOGLOBIN 30.7 pg (27.0-33.0); MEAN CORPUSCULAR HGB CONC 33.4 g/dl (32.0-36.5); MEAN CORPUSCULAR VOLUME 91.8 fl (80.0-96.0); MONO # 1.1 10^3/uL (0.0-0.8); MONO % 12.6 % (2.0-8.0); NEUTROPHILS # 5.3 10^3/uL (1.5-8.5); NEUTROPHILS % 60.1 % (36.0-66.0); PLATELET COUNT, AUTOMATED 195 10^3/uL (150-450); RED BLOOD COUNT 4.76 10^6/uL (4.30-6.10); WHITE BLOOD COUNT 8.8 10^3/uL (4.0-10.0)
[2022-02-28 10:09] LABS: ALBUMIN 3.7 GM/DL (3.2-5.2); ALT/SGPT 22 U/L (12-78); BILIRUBIN,TOTAL 0.3 MG/DL (0.2-1.0); BLOOD UREA NITROGEN 10 MG/DL (7-18); CALCIUM LEVEL 9.3 MG/DL (8.5-10.1); CARBON DIOXIDE LEVEL 26 MEQ/L (21-32); CHLORIDE LEVEL 111 MEQ/L (98-107); CHOLESTEROL LEVEL 197 MG/DL (<200); CHOLESTEROL RISK RATIO 4.804 (<5); CREATININE FOR GFR 0.78 MG/DL (0.70-1.30); GLOMERULAR FILTRATION RATE > 60.0 (>60); GLUCOSE, FASTING 99 MG/DL (70-100); HDL CHOLESTEROL 41 MG/DL (>40); LDL CHOLESTEROL 141 MG/DL (<100); LITHIUM LEVEL 0.45 MEQ/L (0.60-1.20); NON-HDL-C 156 MG/DL; POTASSIUM SERUM 4.5 MEQ/L (3.5-5.1); SODIUM LEVEL 142 MEQ/L (136-145); TOTAL PROTEIN 6.8 GM/DL (6.4-8.2); TRIGLYCERIDES LEVEL 77 MG/DL (<150)
[2022-02-28 10:10] LABS: VITAMIN B12 LEVEL 416 PG/ML
[2022-02-28 10:11] LABS: FOLATE 15.4 NG/ML
[2022-02-28 10:34] LABS: HEMOGLOBIN A1c 5.4 %
== END ==
LOC: M LAB 08:40
PROVIDERS: ATTEND Psychiatry & Neurology Psychiatry
DX: I10 Essential (primary) hypertension (principal)

== ENCOUNTER 2022-06-25 22:51 | Emergency (ER) | payer OTHER ==
[~2022-06-25] VITALS: Ht 172.7 cm; Wt 61.4 kg
[2022-06-25 22:51] VITALS: BP 141/73
[2022-06-25] MEDS ORDERED: WELL100T2 PO (22:55)
== END 2022-06-26 03:50 | disposition left against medical advice (07) ==
LOC: M ED 22:51
DX: Z53.21 Procedure and treatment not carried out due to patient leaving prior to being seen by health care provider (principal)

== ENCOUNTER → 2022-11-27 | Outpatient (CLI) | payer OTHER ==
[~2022-11-27] MED LIST changes: +WELL100T2 PO
[2022-11-27 09:20] LABS: BASO # 0.1 10^3/uL (0.0-0.2); BASO % 0.6 % (0.0-1.0); EOS # 0.1 10^3/uL (0.0-0.5); EOS % 1.4 % (0.0-3.0); HEMATOCRIT 47.6 % (42.0-52.0); HEMOGLOBIN 15.6 g/dl (13.5-17.5); LYMPH # 2.4 10^3/uL (1.5-5.0); LYMPH % 27.5 % (24.0-44.0); MEAN CORPUSCULAR HEMOGLOBIN 30.4 pg (27.0-33.0); MEAN CORPUSCULAR HGB CONC 32.8 g/dl (32.0-36.5); MEAN CORPUSCULAR VOLUME 92.8 fl (80.0-96.0); NEUTROPHILS # 5.1 10^3/uL (1.5-8.5); PLATELET COUNT, AUTOMATED 230 10^3/uL (150-450); RED BLOOD COUNT 5.13 10^6/uL (4.30-6.10); WHITE BLOOD COUNT 8.7 10^3/uL (4.0-10.0)
[2022-11-27 09:39] LABS: ALKALINE PHOSPHATASE 92 U/L (46-116); ALT/SGPT 17 U/L (7.0-40); AST/SGOT 26 U/L (<34); BILIRUBIN,TOTAL 0.4 MG/DL (0.3-1.2); BLOOD UREA NITROGEN 9 MG/DL (9-23); CALCIUM LEVEL 9.4 MG/DL (8.5-10.1); CARBON DIOXIDE LEVEL 25 MMOL/L (20-31); CHLORIDE LEVEL 107 MMOL/L (98-107); CHOLESTEROL LEVEL 173 MG/DL (<200); CHOLESTEROL RISK RATIO 2.61 (<5); CREATININE FOR GFR 0.79 MG/DL (0.70-1.30); GLOMERULAR FILTRATION RATE > 60.0 (>60); GLUCOSE, FASTING 97 MG/DL (60-100); HDL CHOLESTEROL 66.1 MG/DL (>40); LDL CHOLESTEROL 96.1 MG/DL (<100); NON-HDL-C 107 MG/DL; POTASSIUM SERUM 4.9 MMOL/L (3.5-5.1); SODIUM LEVEL 139 MMOL/L (136-145); TOTAL PROTEIN 7.1 G/DL (5.7-8.2); TRIGLYCERIDES LEVEL 54 MG/DL (<150)
[2022-11-27 09:50] LABS: HEMOGLOBIN A1c 4.9 % (4.0-6.0)
[2022-11-27 10:06] LABS: LITHIUM LEVEL 0.48 MMOL/L (0.60-1.20)
== END ==
LOC: M LAB 08:42
PROVIDERS: ATTEND Student in an Organized Health Care Education/Training Program
DX: F31.9 Bipolar disorder, unspecified (principal)

== ENCOUNTER → 2024-06-29 | Outpatient (CLI) | payer OTHER ==
[2024-06-29 12:41] LABS: BASO % 0.4 % (0.0-1.0); EOS % 0.5 % (0.0-3.0); HEMATOCRIT 41.7 % (42.0-52.0); HEMOGLOBIN 14.1 g/dl (13.5-17.5); LYMPH # 1.7 10^3/uL (1.5-5.0); MEAN CORPUSCULAR HGB CONC 33.8 g/dl (32.0-36.5); MEAN CORPUSCULAR VOLUME 88.7 fl (80.0-96.0); MONO # 0.9 10^3/uL (0.0-0.8); MONO % 10.8 % (2.0-8.0); NEUTROPHILS # 5.4 10^3/uL (1.5-8.5); NEUTROPHILS % 66.9 % (36.0-66.0); PLATELET COUNT, AUTOMATED 188 10^3/uL (150-450); WHITE BLOOD COUNT 8.1 10^3/uL (4.0-10.0)
[2024-06-29 13:00] LABS: HEMOGLOBIN A1c 5.3 % (4.0-6.0)
[2024-06-29 13:07] LABS: ALBUMIN 4.3 G/DL (3.2-5.2); ALKALINE PHOSPHATASE 86 U/L (46-116); ALT/SGPT 24 U/L (7.0-40); AST/SGOT 20 U/L (<34); BILIRUBIN,TOTAL 0.5 MG/DL (0.3-1.2); BLOOD UREA NITROGEN 5 MG/DL (9-23); CALCIUM LEVEL 9.2 MG/DL (8.5-10.1); CARBON DIOXIDE LEVEL 27 MMOL/L (20-31); CHLORIDE LEVEL 108 MMOL/L (98-107); CHOLESTEROL LEVEL 184 MG/DL (<200); CHOLESTEROL RISK RATIO 4.06 (<5); CREATININE FOR GFR 0.81 MG/DL (0.70-1.30); GLOMERULAR FILTRATION RATE > 60.0 (>60); GLUCOSE, FASTING 92 MG/DL (60-100); HDL CHOLESTEROL 45.3 MG/DL (>40); LDL CHOLESTEROL 118.1 MG/DL (<100); LITHIUM LEVEL 0.21 MMOL/L (1.0-1.20); NON-HDL-C 138.7 MG/DL; POTASSIUM SERUM 3.8 MMOL/L (3.5-5.1); SODIUM LEVEL 140 MMOL/L (136-145); TOTAL PROTEIN 7.1 G/DL (5.7-8.2); TRIGLYCERIDES LEVEL 103 MG/DL (<150)
[2024-06-29 13:10] LABS: THYROID STIMULATING HORMONE 1.498 uIU/ML (0.55-4.78)
== END ==
LOC: M LAB 12:05
PROVIDERS: ATTEND Student in an Organized Health Care Education/Training Program
DX: F31.9 Bipolar disorder, unspecified (principal)

== ENCOUNTER → 2024-08-06 | Outpatient (CLI) | payer OTHER | LOC: M WHC 08:14 | PROVIDERS: ATTEND Physician Assistant | DX: R22.2 Localized swelling, mass and lump, trunk (principal); D48.9 Neoplasm of uncertain behavior, unspecified ==

== ENCOUNTER → 2024-10-05 | Outpatient (REF) | payer OTHER | LOC: M LAB REF 07:58 | PROVIDERS: ATTEND Surgery | DX: L72.0 Epidermal cyst (principal) ==